=== PATIENT | male | born 1930 | race Caucasian/White ===

== ENCOUNTER 2018-06-05 11:13 | Day surgery (SDC) | payer MEDICARE, BC ==
[~2018-06-05 11:13] MED LIST: ASPIRIN 325 MG TABLET PO PRN; DIAZEPAM 5 MG TABLET PO PRN; DIPHENHYDRAMINE HCL 25 MG CAPSULE PO PRN; RADIAL COCKTAIL SYRINGE 10 ML IV PRN
[2018-06-05] MEDS ORDERED: MIDAZOLAM 2 MG/2 ML INJ ONE ×2 (11:36→13:04)
[2018-06-05] MEDS ORDERED: HEPARIN SOD (PORCINE) 1,000 UNIT/ML 10 ML VIAL ONE (11:37)
[2018-06-05] MEDS ORDERED: LIDOCAINE 1% INJ-PF (10 MG/ML) 30 ML SDV ONE (11:37)
[2018-06-05] MEDS ORDERED: FENTANYL CITRATE INJ/PF 100 MCG/2 ML AMPUL ONE ×2 (11:37→12:46)
[2018-06-05] MEDS ORDERED: BIVALIRUDIN INJ 250 MG VIAL IV ONE (12:45)
[2018-06-05] MEDS ORDERED: NITROGLYCERIN/D5W 50 MG/250 ML RTUINJ IV ONE (13:04)
[2018-06-05] MEDS ORDERED: CLOPIDOGREL BISULFATE 300 MG TABLET ONE (13:32)
--- NOTE | 2018-06-05 13:52 | Operative Report ---
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 Hemodynamic access was gained using micropuncture technique and the patient was anticoagulated with heparin. An intra-arterial cocktail of verapamil and lidocaine was administered. Selective coronary angiography was performed with a [place] catheter. This was exchanged with pigtail catheter and left ventriculography was performed in standard JULES projection. The patient left the Cardiac Catheterization Lab in stable condition, with intact distal pulses and no chest pain or other complications from the procedure. Conscious sedation was initiated, monitored, and maintained during the procedure with the start time of 1223 and a completion time of 1332 for a total procedure time of 69 minutes. A total of 3.5 milligrams of Versed and 100 mcg fentanyl were used for conscious sedation. HEMODYNAMIC DATA: Aortic pressure at the beginning of the case is 160/51 post ventriculography LV pressure is 167/11 aortic pressure and pullback to 162/52 there is no gradient across the aortic valve CORONARY ANATOMY: [] ANGIOGRAPHY: [] VENTRICULOGRAPHY: Ventriculography is performed in the JULES projection and demonstrates preserved global left ventricular function with an EF greater than 55% no regional wall motion abnormality is seen mitral regurgitation is present it is difficult to quantify . CORONARY ANGIOGRAPHY: [] LEFT MAIN: [Normal] LEFT ANTERIOR DESCENDING: Ostial 95% stenosis with luminal irregularities throughout the course of the vessel the LAD is a transapical vessel supplying a diagonal which is noncritical CIRCUMFLEX CORONARY: [The circumflex has a 85 to 90% stenosis in the midportion of the obtuse marginal and diagonal as well as posterolateral branches have irregularities without critical focal stenosis.] RIGHT CORONARY ARTERY: [The right coronary artery is a dominant vessel supplying the PDA and posterolateral branches this is irregularities without critical focal narrowings] IMPRESSION: [ 1. Preserved left ventricular function 2. No evidence of significant valvular heart disease although mitral regurgitation cannot be quantified 3. High-grade two-vessel disease involving the ostial LAD and mid circumflex 4. Drug-eluting stent implantation with a 2.5 x 18 Medtronic [place] stent in the LAD and a 2.0 18 Medtronic Joe drug-eluting stent in the circumflex. CC : Dr. Andrew Borjas]
[2018-06-05 19:00] VITALS: BP 150/67
== END 2018-06-05 18:30 | disposition home or self-care (01) ==
LOC: CCL 11:13
PROVIDERS: ATTEND Internal Medicine Cardiovascular Disease
DX: I20.9 Angina pectoris, unspecified (principal); Z79.01 Long term (current) use of anticoagulants; Z79.899 Other long term (current) drug therapy; Z79.51 Long term (current) use of inhaled steroids; I10 Essential (primary) hypertension; E78.5 Hyperlipidemia, unspecified; R73.9 Hyperglycemia, unspecified; N30.10 Interstitial cystitis (chronic) without hematuria; I48.91 Unspecified atrial fibrillation; D64.9 Anemia, unspecified; I48.0 Paroxysmal atrial fibrillation; R63.4 Abnormal weight loss; E89.0 Postprocedural hypothyroidism; I45.3 Trifascicular block; I25.2 Old myocardial infarction
CPT/HCPCS: 82962; 93458; 92929; 92928; C1874; A9270 ×3; J2250; J3010; J1644 ×2; J3490 ×5; J0583